=== PATIENT | male | born 1985 | race Caucasian/White ===

== ENCOUNTER 2022-01-21 10:30 | Day surgery (SDC) | payer OTHER ==
[~2022-01-21] VITALS: Ht 182.9 cm; Wt 88.4 kg
[2022-01-21] MEDS ORDERED: PROTONIX 40MG T40 MG PO (10:45)
[2022-01-21 10:58] VITALS: BP 125/80; PULSE 83; TEMP 97.5
[2022-01-21 11:45] VITALS: BP 108/67; PULSE 81; TEMP 97.5
[2022-01-21 12:00] VITALS: BP 106/69; PULSE 72
[2022-01-21 12:15] VITALS: BP 112/69; PULSE 69
--- NOTE | 2022-01-21 12:39 | NUR ---
Pt has returned via cart to [facility] [address] Leach in to visit post to discuss findings. VSS-see flowsheet. IV removed, pressure dressing applied. Pt tolerated oral intake. Dressed independently. Discharge teaching completed, pt verbalized understanding. Pt refused wc and ambulated with staff to private vehicle for dc home with driving.
== END 2022-01-21 12:40 | disposition home or self-care (01) ==
LOC: SDCO 10:30
DX: K21.00 Gastro-esophageal reflux disease with esophagitis, without bleeding (principal); R07.89 Other chest pain; Z79.899 Other long term (current) drug therapy
CPT/HCPCS: J2704; J7120